=== PATIENT | male | born 1985 | race African-American/Black ===

== ENCOUNTER 2022-07-04 14:45 | Emergency (ER) | payer OTHER ==
[~2022-07-04 14:45] MED LIST: AMLO-257 PO; BUPR-50 PO; FLUO20CA36 PO; HCTZ; HYDR-4584 PO; LORA-999 PO; OMEP20 PO; PRAZ1 PO; QUET100T PO
[2022-07-04 15:10] LABS: COVID AG,FIA SOURCE NASAL SWAB
[2022-07-04 15:38] LABS: INFLUENZA TYPE A NEGATIVE FOR TYPE A (NEGATIVE); INFLUENZA TYPE B NEGATIVE FOR TYPE B (NEGATIVE)
== END 2022-07-04 18:29 | disposition left against medical advice (07) ==
LOC: EMS 14:45
DX: J02.9 Acute pharyngitis, unspecified (principal); Z20.822 Contact with and (suspected) exposure to COVID-19; Z53.21 Procedure and treatment not carried out due to patient leaving prior to being seen by health care provider
CPT/HCPCS: 87804; 99281; Z7502